=== PATIENT | male | born 2000 | race African-American/Black ===

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

== ENCOUNTER 2020-08-30 19:48 | Emergency (ER) | payer SELFPAY ==
[2020-08-30 20:44] LABS: Bilirubin Negative (Negative); Blood, Urine 1+ (Negative); Clarity Extra Turbid (Clear); Glucose, Urine (Dipstick) Normal (Negative); Ketone, Urine Negative (Negative); Leukocyte 500 Leu/uL (Negative); Nitrite Negative (Negative); Protein, Urine (Dipstick) 30 mg/dL (Neg-Trace); Specific Gravity, Urine 1.017 (1.002-1.036); Squamous Epithelial None Seen HPF (0-3); WBC/HPF Greater than 50 HPF (0-3); pH, Urine 7.5 (5.0-9.0)
[2020-08-30 20:48] LABS: Bacteria/HPF Rare-Few HPF (None Seen)
[2020-08-30] MEDS ORDERED: cefTRIAXone\\ROCEPHIN 250 MG VIAL ONE ×2 (21:11→21:13)
[2020-08-30] MEDS ORDERED: Azithromycin 250 MG TAB ONE ×2 (21:11→21:13)
[2020-08-30] MEDS ORDERED: Lidocaine 1% PF 5 ML VIAL ONE (21:13)
[2020-09-04 15:51] LABS: Chlam.trachomatis by PCR,Urine Inconclusive (NotDetected)
== END 2020-08-30 21:39 | disposition home or self-care (01) ==
LOC: ERS 19:48
DX: R36.9 Urethral discharge, unspecified (principal)
CPT/HCPCS: 81003; 81015; 87491; 87591; 96372; 99283; J0696

== ENCOUNTER 2021-01-30 20:57 | Emergency (ER) | payer SELFPAY | END 2021-01-30 22:57 | disposition home or self-care (01) | LOC: ERS 20:57 | DX: K29.70 Gastritis, unspecified, without bleeding (principal); H60.91 Unspecified otitis externa, right ear; R09.81 Nasal congestion | CPT/HCPCS: 99283 ==

== ENCOUNTER 2021-10-09 21:20 | Emergency (ER) | payer SELFPAY ==
[2021-10-10 15:01] LABS: SARS-CoV-2 PCR by NAA DETECTED (NotDetected)
== END 2021-10-09 23:15 | disposition home or self-care (01) ==
LOC: ERS 21:20
DX: U07.1 COVID-19 (principal)
CPT/HCPCS: 71046; U0003; U0005

== ENCOUNTER 2021-11-06 17:25 | Emergency (ER) | payer SELFPAY | END 2021-11-06 18:20 | disposition home or self-care (01) | LOC: ERS 17:25 | DX: R05.9 Cough, unspecified (principal) | CPT/HCPCS: 71045 ==

== ENCOUNTER 2021-11-29 19:14 | Emergency (ER) | payer SELFPAY ==
[2021-11-29 20:14] LABS: #Basophils 0.1 thou/uL (0.0-0.2); #Eosinphils 0.3 thou/uL (0.0-0.7); #Lymphocytes 3.1 thou/uL (1.20-3.40); #Monocytes 0.5 thou/uL (0.11-0.59); #Neutrophils 3.2 thou/uL (1.40-6.50); %Basophils 1.6 % (0.0-1.0); %Eosinophils 4.6 % (0.0-10.0); %Lymphocytes 42.5 % (21.0-51.0); %Monocytes 7.4 % (0.0-10.0); %Neutrophils 43.9 % (42.0-75.0); Hemoglobin 14.5 g/dL (14.0-18.0); Mean Corpuscular HGB CONC 32.6 g/dL (32.0-36.0); Mean Corpuscular Hemoglobin 32.3 pg (27.0-31.0); Mean Platelet Volume 6.3 fL (7.4-10.4); Platelet Count 316 thou/uL (130-400); White Blood Cell (WBC) Count 7.2 thou/uL (4.8-10.8)
[2021-11-29 20:40] LABS: ALT (SGPT) 7 U/L (8-55); AST (SGOT) 12 U/L (5-34); Albumin 4.1 g/dL (3.5-5.0); Alkaline Phosphatase 41 U/L (40-110); Anion Gap 12 mmol/L (10-20); BUN (Urea Nitrogen) 6 mg/dL (8.9-20.6); Bilirubin, Total 0.8 mg/dL (0.2-1.2); Calc. Creatinine Clearance 0 mL/min (70-130); Calcium 9.3 mg/dL (7.8-10.44); Carbon Dioxide 26 mmol/L (22-29); Chloride 106 mmol/L (98-107); Globulin 3.2 g/dL (2.4-3.5); Glucose 83 mg/dL (70-105); Potassium 3.8 mmol/L (3.5-5.1); Protein, Total 7.3 g/dL (6.0-8.3); Sodium 140 mmol/L (136-145)
== END 2021-11-29 20:50 | disposition home or self-care (01) ==
LOC: ERS 19:14
DX: R11.2 Nausea with vomiting, unspecified (principal); R10.31 Right lower quadrant pain
CPT/HCPCS: 36415; 80053; 85025; 99284

== ENCOUNTER 2022-02-04 21:13 | Emergency (ER) | payer SELFPAY ==
[2022-02-04 21:40] LABS: Bilirubin Negative (Negative); Blood, Urine Negative (Negative); Clarity Clear (Clear); Glucose, Urine (Dipstick) Normal (Negative); Ketone, Urine Negative (Negative); Leukocyte 250 Leu/uL (Negative); Mucous/LPF Rare LPF (<2+); Nitrite Negative (Negative); Protein, Urine (Dipstick) 20 mg/dL (Neg-Trace); RBC/HPF 0-3 HPF (0-3); Specific Gravity, Urine 1.032 (1.002-1.036); Squamous Epithelial 0-3 HPF (0-3); WBC/HPF 21-50 HPF (0-3); pH, Urine 6.5 (5.0-9.0)
[2022-02-04 21:55] LABS: Bacteria/HPF 1+ HPF (None Seen)
[2022-02-04] MEDS ORDERED: cefTRIAXone\\ROCEPHIN 500 MG VIAL ONE (23:44)
[2022-02-04] MEDS ORDERED: Azithromycin 250 MG TAB ONE (23:44)
[2022-02-04] MEDS ORDERED: Lidocaine 1% PF 5 ML VIAL ONE (23:44)
[2022-02-05 20:54] LABS: Chlam.trachomatis by PCR,Urine Not Detected (NotDetected)
== END 2022-02-05 00:05 | disposition home or self-care (01) ==
LOC: ERS 21:13
DX: Z20.2 Contact with and (suspected) exposure to infections with a predominantly sexual mode of transmission (principal); F17.290 Nicotine dependence, other tobacco product, uncomplicated
CPT/HCPCS: 81003; 81015; 87086; 87491; 87591; 96372; 99283; J0696

== ENCOUNTER 2022-02-23 17:42 | Emergency (ER) | payer SELFPAY | END 2022-02-23 19:08 | disposition home or self-care (01) | LOC: ERS 17:42 | DX: N34.1 Nonspecific urethritis (principal); R36.9 Urethral discharge, unspecified; F17.290 Nicotine dependence, other tobacco product, uncomplicated | CPT/HCPCS: 99282 ==

== ENCOUNTER 2022-06-20 19:01 | Emergency (ER) | payer SELFPAY ==
[2022-06-20] MEDS ORDERED: cefTRIAXone\\ROCEPHIN 500 MG VIAL ONE (19:25)
[2022-06-20 20:11] LABS: Bacteria/HPF None Seen HPF (None Seen); Bilirubin Negative (Negative); Blood, Urine Negative (Negative); Clarity Clear (Clear); Glucose, Urine (Dipstick) Normal (Negative); Ketone, Urine Negative (Negative); Leukocyte 500 Leu/uL (Negative); Mucous/LPF Rare LPF (<2+); Nitrite Negative (Negative); Protein, Urine (Dipstick) 10 mg/dL (Neg-Trace); RBC/HPF 0-3 HPF (0-3); Specific Gravity, Urine 1.024 (1.002-1.036); Squamous Epithelial None Seen HPF (0-3); WBC/HPF Greater than 50 HPF (0-3)
[2022-06-21 11:44] LABS: Chlam.trachomatis by PCR,Urine Not Detected (NotDetected)
== END 2022-06-20 19:35 | disposition home or self-care (01) ==
LOC: ERS 19:01
DX: A64 Unspecified sexually transmitted disease (principal); F17.290 Nicotine dependence, other tobacco product, uncomplicated
CPT/HCPCS: 81003; 81015; 87491; 87591; 96372; 99283; J0696

== ENCOUNTER 2022-08-21 19:19 | Emergency (ER) | payer SELFPAY ==
[2022-08-21 21:08] LABS: Bilirubin Negative (Negative); Blood, Urine Negative (Negative); Clarity Clear (Clear); Glucose, Urine (Dipstick) Normal (Negative); Ketone, Urine Trace mg/dL (Negative); Leukocyte 250 Leu/uL (Negative); Mucous/LPF 1+ LPF (<2+); Nitrite Negative (Negative); Protein, Urine (Dipstick) 20 mg/dL (Neg-Trace); Specific Gravity, Urine 1.032 (1.002-1.036); Squamous Epithelial 0-3 HPF (0-3); Urobilinogen 3 mg/dL (Less than 2); WBC/HPF Greater than 50 HPF (0-3)
[2022-08-21 21:17] LABS: Bacteria/HPF 1+ HPF (None Seen)
[2022-08-21] MEDS ORDERED: cefTRIAXone\\ROCEPHIN 500 MG VIAL ONE (22:04)
[2022-08-21] MEDS ORDERED: Lidocaine 1% PF 5 ML VIAL ONE (22:04)
[2022-08-22 11:00] LABS: Chlam.trachomatis by PCR,Urine Not Detected (NotDetected)
== END 2022-08-21 22:30 | disposition home or self-care (01) ==
LOC: ERS 19:19
DX: R36.9 Urethral discharge, unspecified (principal); F17.210 Nicotine dependence, cigarettes, uncomplicated
CPT/HCPCS: 81003; 81015; 87491; 87591; 96372; 99283; J0696